=== PATIENT | female | born 1985 | race Caucasian/White ===

== ENCOUNTER 2016-11-17 12:36 | Outpatient (CLI) | payer BC ==
--- NOTE | 2016-11-17 17:16 | MRI ---
MRI OF THE CERVICAL SPINE WITHOUT CONTRAST: 11/17/16 INDICATION: History of neck pain with radiation down left side of neck with tingling. COMPARISON: None. FINDINGS: There is mucosal thickening seen within the sphenoid sinus. Otherwise, the visualized aspects of the posterior fossa appear within normal limits. Bone marrow signal intensity appears within normal limits. Craniocervical junction and C1-C2 articulations appear within normal limits on the sagittal images. At C2-3, there is mild facet joint degenerative change bilaterally. There is no appreciable central canal or neural foraminal narrowing. At C3-4, there is no appreciable central canal or neural foraminal narrowing. There is mild facet venita int degenerative change. At C4-5, there is mild facet degenerative change without appreciable central canal or neural foramin al narrowing. At C5-6, there is no appreciable central canal or neural foraminal narrowing. There is mild bilatera l facet joint degenerative change. At C6-7, there is a mild broad based disc bulge with uncovertebral hypertrophy. There is mild facet joint degenerative change. There is no appreciable central canal or neural foraminal narrowing. At C7-T1, there is no appreciable central canal or neural foraminal narrowing. IMPRESSION: 1. Mild facet osteoarthritic change and disc degenerative disease of the cervical spine without appreciable central canal or neural foraminal narrowing. 2. Mild paranasal sinus disease. POS: [facility]
== END 2016-11-17 12:37 | disposition home or self-care (01) ==
LOC: SCSMRI 12:36
PROVIDERS: ATTEND Family Medicine
DX: M50.10 Cervical disc disorder with radiculopathy, unspecified cervical region (principal); M47.22 Other spondylosis with radiculopathy, cervical region; J34.9 Unspecified disorder of nose and nasal sinuses
CPT/HCPCS: 72141